=== PATIENT | female | born 1965 | race Caucasian/White ===

== ENCOUNTER 2023-01-23 07:06 | Day surgery (SDC) | payer OTHER ==
[~2023-01-23] VITALS: Ht 160 cm; Wt 81.6 kg
[2023-01-23] MEDS ORDERED: LIDOCAINE 1% 500 MG/50 ML VIAL ONE (08:06)
== END 2023-01-23 09:25 | disposition home or self-care (01) ==
LOC: MMU 07:06 → MDS 07:06
PROVIDERS: ATTEND Internal Medicine Gastroenterology
DX: K75.81 Nonalcoholic steatohepatitis (NASH) (principal); I10 Essential (primary) hypertension; E78.5 Hyperlipidemia, unspecified; E11.9 Type 2 diabetes mellitus without complications; E66.9 Obesity, unspecified; Z98.51 Tubal ligation status; Z79.84 Long term (current) use of oral hypoglycemic drugs; Z79.899 Other long term (current) drug therapy; Z68.31 Body mass index [BMI] 31.0-31.9, adult
CPT/HCPCS: 47000; 76942; J2001; Q0092